=== PATIENT | female | born 1995 | race African-American/Black ===

== ENCOUNTER 2017-01-10 04:39 | Inpatient (IN) | payer MEDICAID ==
[2017-01-10] VITALS (8 sets, daily range): BP systolic 114–129; BP diastolic 73–96
[~2017-01-10] VITALS: Ht 30.5 cm; Wt 0.5 kg
[~2017-01-10 04:39] MED LIST: FERR325T50 PO; PREN-129 PO
[2017-01-10 05:39] LABS: Urine RBC None Seen /hpf (0 - 4)
[2017-01-10 05:42] LABS: Basophils # (auto) 0 uL; Basophils % (auto) 0.4 % (0.0-2.0); Eosinophils # (auto) 0.1 uL; Eosinophils % (auto) 1.2 % (0.0-7.0); Hematocrit 36.5 % (36.0-46.0); Lymphocytes # (auto) 2.2 uL; Lymphocytes % (auto) 33.2 % (10.0-50.0); Mean Corpuscular Hemoglobin 28.3 pg (28.0-32.0); Mean Corpuscular Hgb Conc. 32.8 g/dL (32.0-36.0); Mean Corpuscular Volume 86.3 fL (80.0-100.0); Mean Platelet Volume 8.4 fL (7.4-10.4); Monocytes # (auto) 0.9 uL; Monocytes % (auto) 13.2 % (0.0-12.0); Neutrophils # (auto) 3.4 uL; Platelet Count (auto) 242 10^3/uL (140-450); Red Cell Distribution Width 13.3 % (11.6-16.0); White Blood Cell 6.6 10^3/uL (4.4-10.8)
[2017-01-10 05:50] LABS: Urine Bilirubin Negative (Negative); Urine Blood Negative /uL (Negative); Urine Color Yellow (Yellow); Urine Glucose Normal (Normal); Urine Ketone Negative (Negative); Urine Nitrite Negative (Negative); Urine Squamous Epithelial Cell MOD /hpf (<5); Urine Urobilinogen Normal (Negative)
[2017-01-10 05:56] LABS: INR 0.9 (0.9-1.15); Partial Thromboplastin Time 30.6 sec (22.64-33.71); Prothrombin Time 9.7 sec (9.37-12.3)
[2017-01-10 06:18] LABS: BUN/Creatinine Ratio 12.3; Bilirubin, Total 0.3 mg/dL (0.2-1.0); Calcium 9.4 mg/dL (8.5-10.1); Potassium 3.8 mmol/L (3.5-5.1); Total Protein 7.5 g/dL (6.4-8.2)
[2017-01-10] MEDS ORDERED: fentaNYL CITRATE 100 MCG/2 ML VL ONE (09:02)
[2017-01-10] MEDS ORDERED: ceFAZolin 1GM VL ONE (09:03)
[2017-01-10] MEDS ORDERED: ONDANSETRON HCL 4 MG/2 ML VIAL ONE (09:03)
[2017-01-10] MEDS ORDERED: MORPHINE SULF(PF) 0.5MG/ML 10ML VIAL ONE (09:03)
[2017-01-10] MEDS ORDERED: OXYTOCIN 10 UNIT/ML 10ML VIAL ONE ×2 (09:04→10:15)
[2017-01-10] MEDS ORDERED: KETOROLAC TROMETH 30 MG/ML 1ML VIAL ONE (09:04)
[2017-01-10] MEDS ORDERED: DEXAMETHASONE SOD PHOS 10MG/1ML VIAL INJ IV ONE (09:07)
[2017-01-10] MEDS ORDERED: ONDANSETRON HCL 4 MG/2 ML VIAL IV PRN ×2 (10:00→10:30)
[2017-01-10] MEDS ORDERED: MORPHINE SULF INJ 2 MG/ML SYRINGE 1ML IV PRN (10:00)
[2017-01-10] MEDS ORDERED: KETOROLAC TROMETH 30 MG/ML 1ML VIAL IV PRN ×2 (10:00→10:30)
[2017-01-10] MEDS ORDERED: HYDROmorphone HCL 2 MG/ML VL IV PRN ×3 (10:00→10:30)
[2017-01-10] MEDS: LACT. RINGERS/OXYTOCIN 20UNITS 1,000 ML IV SCH ×2 (10:00→16:40)
[2017-01-10] MEDS ORDERED: OXYTOCIN 10UNIT/ML 1ML VIAL ONE (10:13)
[2017-01-10] MEDS ORDERED: ONDANSETRON HCL 4 MG/2 ML VIAL IV ONE (10:30)
[2017-01-10] MEDS ORDERED: NALOXONE HCL 0.4 MG/ML VIAL IV PRN ×2 (10:30)
[2017-01-10] MEDS ORDERED: DEXAMETHASONE SOD PHOS 10MG/1ML VIAL INJ IV PRN (10:30)
[2017-01-10] MEDS ORDERED: diphenhdrAMINE HCL 50 MG/1 ML VL IV PRN (10:30)
[2017-01-10] MEDS: LACTATED RINGER'S 1,000 ML IV SCH ×2 (12:51→15:00)
[2017-01-10] MEDS: ceFAZolin 1GM/50ML D5W 50 ML IV SCH ×2 (14:00→22:08)
[2017-01-10] MEDS ORDERED: METOCLOPRAMIDE HCL 5MG/ml INJ 2ml VIAL IV PRN (16:45)
[2017-01-10] MEDS: FAMOTIDINE INJECTION 40 MG in SODIUM CHL 0.9% 100 ML IV SCH (17:00)
[2017-01-10 17:24] LABS: Basophils # (auto) 0 uL; Eosinophils # (auto) 0 uL; Eosinophils % (auto) 0.1 % (0.0-7.0); Hematocrit 33.8 % (36.0-46.0); Hemoglobin 10.9 g/dL (12.2-16.2); Lymphocytes # (auto) 0.9 uL; Lymphocytes % (auto) 8.7 % (10.0-50.0); Mean Corpuscular Hemoglobin 28.4 pg (28.0-32.0); Mean Corpuscular Hgb Conc. 32.4 g/dL (32.0-36.0); Mean Corpuscular Volume 87.8 fL (80.0-100.0); Mean Platelet Volume 8.3 fL (7.4-10.4); Monocytes # (auto) 0.9 uL; Neutrophils # (auto) 8.2 uL; Neutrophils % (auto) 82.2 % (37.0-80.0); Platelet Count (auto) 214 10^3/uL (140-450); Red Cell Distribution Width 13.2 % (11.6-16.0); White Blood Cell 9.9 10^3/uL (4.4-10.8)
[2017-01-11] VITALS (8 sets, daily range): BP systolic 107–127; BP diastolic 67–84
[2017-01-11] MEDS: ceFAZolin 1GM/50ML D5W 50 ML IV SCH (05:44)
[2017-01-11 06:02] LABS: Basophils # (auto) 0 uL; Basophils % (auto) 0.4 % (0.0-2.0); Eosinophils # (auto) 0 uL; Eosinophils % (auto) 0.4 % (0.0-7.0); Hematocrit 31.3 % (36.0-46.0); Hemoglobin 10.3 g/dL (12.2-16.2); Lymphocytes # (auto) 1.4 uL; Lymphocytes % (auto) 18.1 % (10.0-50.0); Mean Corpuscular Hemoglobin 28.6 pg (28.0-32.0); Mean Corpuscular Hgb Conc. 32.8 g/dL (32.0-36.0); Mean Corpuscular Volume 87.3 fL (80.0-100.0); Mean Platelet Volume 8.2 fL (7.4-10.4); Monocytes # (auto) 0.8 uL; Monocytes % (auto) 10.7 % (0.0-12.0); Neutrophils # (auto) 5.5 uL; Neutrophils % (auto) 70.4 % (37.0-80.0); Platelet Count (auto) 209 10^3/uL (140-450); Red Cell Distribution Width 12.9 % (11.6-16.0); White Blood Cell 7.8 10^3/uL (4.4-10.8)
[2017-01-11] MEDS ORDERED: BISACODYL 10 MG RECT SUPP PR PRN ×2 (07:45)
[2017-01-11] MEDS ORDERED: IBUPROFEN 800 MG TAB PO PRN (07:45)
[2017-01-11] MEDS ORDERED: HYDROcodone-ACET 10/325MG TAB PO PRN ×2 (07:45)
[2017-01-11] MEDS: SIMETHICONE 80 MG CHEWABLE TABLET PO SCH ×4 (08:50→22:20)
[2017-01-11] MEDS ORDERED: DOCUSATE CALCIUM 240 MG CAP PO SCH (10:00)
[2017-01-11] MEDS: DOCUSATE SOD 100 MG CAP PO SCH ×2 (10:00→22:20)
[2017-01-11] MEDS ORDERED: DOCUSATE SOD 100 MG CAP PO SCH (10:00)
[2017-01-11] MEDS: DOCUSATE CALCIUM 240 MG CAP PO SCH (10:31)
[2017-01-11] MEDS ORDERED: SIMETHICONE 80 MG CHEWABLE TABLET PO SCH (12:00)
[2017-01-11] MEDS: FAMOTIDINE INJECTION 40 MG in SODIUM CHL 0.9% 100 ML IV SCH (16:37)
[2017-01-11] MEDS: IBUPROFEN 800 MG TAB PO PRN (22:25)
[2017-01-12 03:30] VITALS: BP 127/77
[2017-01-12] MEDS: SIMETHICONE 80 MG CHEWABLE TABLET PO SCH ×4 (06:50→22:39)
[2017-01-12] MEDS: IBUPROFEN 800 MG TAB PO PRN (07:02)
[2017-01-12 07:22] VITALS: BP 136/85
[2017-01-12] MEDS: DOCUSATE CALCIUM 240 MG CAP PO SCH (10:30)
[2017-01-12] MEDS: DOCUSATE SOD 100 MG CAP PO SCH ×2 (10:30→22:39)
[2017-01-12 12:22] VITALS: BP 124/84
[2017-01-12 16:00] VITALS: BP 108/65
[2017-01-12] MEDS ORDERED: HYDROcodone-ACET 10/325MG TAB PO PRN (16:45)
[2017-01-12] MEDS ORDERED: HYDROcodone-ACET 5/325MG TAB PO PRN ×2 (17:15)
[2017-01-12] MEDS: HYDROcodone-ACET 5/325MG TAB PO PRN (17:22)
[2017-01-12 19:00] VITALS: BP 114/74
[2017-01-12 23:07] VITALS: BP 124/78
[2017-01-13] MEDS: HYDROcodone-ACET 5/325MG TAB PO PRN (00:50)
[2017-01-13 03:42] VITALS: BP 118/80
[2017-01-13] MEDS: SIMETHICONE 80 MG CHEWABLE TABLET PO SCH (05:38)
[2017-01-13 07:00] VITALS: BP 144/87
== END 2017-01-13 09:40 | disposition home or self-care (01) | DRG 540 ==
LOC: LDRP 04:39 → OBSVTOIN 04:39 → LDRP 08:31
PROVIDERS: ADMIT Obstetrics & Gynecology; ATTEND Obstetrics & Gynecology
PROC: 10D00Z1 Extraction of Products of Conception, Low, Open Approach (ICD-10-PCS; principal; 2017-01-10 09:07)
DX: O34.219 Maternal care for unspecified type scar from previous cesarean delivery (principal); Z37.0 Single live birth; Z3A.39 39 weeks gestation of pregnancy
CPT/HCPCS: 36415; 59025; 80053; 81001; 85025; 85610; 85730; 86850; 86900; 86901; 96361; 96365; 96366; 96375; G0434; J0690; J1100; J1885; J2405; J2590; J3490

== ENCOUNTER 2018-03-19 16:41 | Emergency (ER) | payer MEDICAID ==
[~2018-03-19] VITALS: Ht 167.6 cm; Wt 60.8 kg
[2018-03-19 16:48] VITALS: BP 111/78
== END 2018-03-19 18:22 | disposition home or self-care (01) ==
LOC: ER 16:41
DX: O20.0 Threatened abortion (principal); Z3A.13 13 weeks gestation of pregnancy; Z88.8 Allergy status to other drugs, medicaments and biological substances
CPT/HCPCS: 36415; 76801; 84702

== ENCOUNTER 2019-11-24 04:00 | Inpatient (IN) | payer MEDICAID ==
[2019-11-24] VITALS (13 sets, daily range): BP systolic 97–148; BP diastolic 55–79
[~2019-11-24] VITALS: Ht 167.6 cm; Wt 77.1 kg
[2019-11-24 04:57] LABS: Basophils # (auto) 0 uL; Basophils % (auto) 0.7 % (0.0-2.0); Eosinophils # (auto) 0.1 uL; Eosinophils % (auto) 1.7 % (0.0-7.0); Hemoglobin 10.8 g/dL (12.2-16.2); Lymphocytes # (auto) 1.8 uL; Lymphocytes % (auto) 30.9 % (10.0-50.0); Mean Corpuscular Hemoglobin 26.6 pg (28.0-32.0); Mean Corpuscular Hgb Conc. 31.8 g/dL (32.0-36.0); Mean Corpuscular Volume 83.5 fL (80.0-100.0); Monocytes # (auto) 0.7 uL; Neutrophils # (auto) 3.3 uL; Neutrophils % (auto) 55.7 % (37.0-80.0); Nucleated Red Blood Cells % 0.1 %; Platelet Count (auto) 224 10^3/uL (140-450); Red Blood Cells 4.07 10^6/uL (4.0-5.20); Red Cell Distribution Width 16.6 % (11.8-14.3); White Blood Cell 5.9 10^3/uL (4.4-10.8)
[2019-11-24 05:15] LABS: Calcium 8.9 mg/dL (8.5-10.1); Potassium 3.6 mmol/L (3.5-5.1)
[2019-11-24 05:17] LABS: BUN/Creatinine Ratio 10.9; Bilirubin, Total 0.2 mg/dL (0.2-1.0); INR 0.94 (0.9-1.15); Total Protein 7.3 g/dL (6.4-8.2)
[2019-11-24 05:22] LABS: Alcohol, Urine < 3.0 mg/dL (0-5); Amphetamine Screen, Urine NEGATIVE (NEGATIVE); Barbiturate Scree,Urine NEGATIVE (NEGATIVE); Benzodiazephine Screen, Urine NEGATIVE (NEGATIVE); Cannabinoid Screen, Urine NEGATIVE (NEGATIVE); Cocaine Screen, Urine NEGATIVE (NEGATIVE); Opiate Scree,Urine NEGATIVE (NEGATIVE); Phencyclidine Screen, Urine NEGATIVE (NEGATIVE)
[2019-11-24 05:53] LABS: Urine Bacteria MOD /hpf (None Seen); Urine Blood Negative /uL (Negative); Urine Hyaline Cast FEW /lpf (0 - 2); Urine Specific Gravity 1.014 (1.001-1.035); Urine WBC 69 /hpf (0 - 5); Urine WBC Clumps PRESENT /hpf (None Seen)
[2019-11-24] MEDS ORDERED: ceFAZolin 1GM/50ML 50 ML IV SCH (07:15)
[2019-11-24] MEDS ORDERED: ONDANSETRON HCL 4 MG/2 ML VIAL IV PRN ×2 (07:15→09:00)
[2019-11-24] MEDS ORDERED: TETRACAINE 1% INJ 2 ML VIAL IJ ONE (07:23)
[2019-11-24] MEDS ORDERED: MORPHINE SULF(PF) 0.5MG/ML 10ML VIAL ONE (07:26)
[2019-11-24] MEDS ORDERED: fentaNYL CITRATE 100 MCG/2 ML VL ONE (07:26)
[2019-11-24] MEDS ORDERED: MIDAZOLAM HCL 1MG/1ML-2 ML VIAL ONE (07:27)
[2019-11-24] MEDS ORDERED: OXYTOCIN 10 UNIT/ML 10ML VIAL ONE (07:52)
[2019-11-24] MEDS ORDERED: OXYTOCIN 10UNIT/ML 1ML VIAL ONE (08:37)
--- NOTE | 2019-11-24 08:53 | NUR ---
Pt educated on benefits of as well as risks of not . Pt informed that RN would provide assistance as needed to promote exclusive . Pt verbalizes understanding.
[2019-11-24] MEDS ORDERED: HYDROmorphone HCL 2 MG/ML VL IV PRN (09:00)
[2019-11-24] MEDS ORDERED: NALBUPHINE HCL 10 MG/1ml INJECTION SUBCUT ONE (09:00)
[2019-11-24] MEDS ORDERED: DexAMETHasone SOD PHOS 10MG/1ML VIAL INJ IV PRN (09:00)
[2019-11-24] MEDS ORDERED: ePHEDrine SULFATE 50 MG/ML AMP IV PRN (09:00)
[2019-11-24] MEDS ORDERED: diphenhdrAMINE HCL 50 MG/1 ML VL IV PRN (09:00)
[2019-11-24] MEDS ORDERED: KETOROLAC TROMETH 15 mg/ml 1ML VL IV PRN (09:00)
[2019-11-24] MEDS ORDERED: LABETALOL HCL 5 MG/ML 4ML SYRINGE IV PRN (09:00)
[2019-11-24] MEDS ORDERED: NALOXONE HCL 0.4 MG/ML VIAL IV PRN (09:00)
--- NOTE | 2019-11-24 09:10 | NUR ---
Report on stable patient received from Barbara Ayala RN. Patient transferred to Room 107A. No signs of distress noted. Fundus at umbilicus, firm with scant lochia. Bp 105/79, HR 89, SPO2 96% RR 16.
[2019-11-24] MEDS ORDERED: ACETAMINOPHEN IV 1000 MG/100ML (10MG/ML) IV ONE ×2 (12:00→22:45)
[2019-11-24] MEDS: LACT. RINGERS/OXYTOCIN 20UNITS 1,000 ML IV SCH ×2 (13:51→16:15)
[2019-11-24] MEDS: MORPHINE SULFATE 4 MG/ML SYR/VIAL IV PRN ×2 (16:04→20:11)
[2019-11-24] MEDS: ceFAZolin 1GM/50ML 50 ML IV SCH ×2 (16:05→23:40)
[2019-11-24] MEDS: LACTATED RINGER'S 1,000 ML IV SCH (16:54)
[2019-11-24 20:03] LABS: Basophils # (auto) 0 uL; Basophils % (auto) 0.4 % (0.0-2.0); Eosinophils # (auto) 0 uL; Eosinophils % (auto) 0.1 % (0.0-7.0); Hematocrit 31.7 % (36.0-46.0); Hemoglobin 10.3 g/dL (12.2-16.2); Lymphocytes # (auto) 0.5 uL; Lymphocytes % (auto) 6.5 % (10.0-50.0); Mean Corpuscular Hemoglobin 27.2 pg (28.0-32.0); Mean Corpuscular Hgb Conc. 32.4 g/dL (32.0-36.0); Mean Corpuscular Volume 83.9 fL (80.0-100.0); Monocytes # (auto) 0.8 uL; Monocytes % (auto) 9.9 % (0.0-12.0); Neutrophils # (auto) 6.9 uL; Neutrophils % (auto) 83.1 % (37.0-80.0); Platelet Count (auto) 189 10^3/uL (140-450); Red Blood Cells 3.78 10^6/uL (4.0-5.20); White Blood Cell 8.3 10^3/uL (4.4-10.8)
--- NOTE | 2019-11-24 22:20 | NUR ---
Ambulation: Patient OOB with standby assistance by RN. Patient ambulates around room with steady gait. Tolbert catheter remains in place draining clear yellow urine. Pericare teaching provided with returned demonstration by patient. Clean gown provided and bed linen changed. Patient ambulated back to bed with steady gait and no distress noted.
--- NOTE | 2019-11-24 22:46 | NUR ---
CECI Sainz made aware of 100.9 temp. Orders received for IV Offirmev. CECI aware patient received it at 1215 today. Addendum: 11/24/19 at 9191 by Rachael Colin RN RN Order for One Time Dose.
[2019-11-25 02:32] VITALS: BP 121/85
[2019-11-25] MEDS: LACTATED RINGER'S 1,000 ML IV SCH ×3 (03:56→21:27)
--- NOTE | 2019-11-25 04:30 | NUR ---
Emeli ORNELAS aware of temperatures of mother. No new orders given. Continue current plan of care.
[2019-11-25 05:06] LABS: RPR Non Reactive (Non Reactive)
[2019-11-25] MEDS: MORPHINE SULFATE 4 MG/ML SYR/VIAL IV PRN (05:24)
--- NOTE | 2019-11-25 05:30 | NUR ---
Méndez catheter dc'd Order to discontinue méndez catheter. Méndez dc'd with clean technique following deflation of balloon. Patient tolerated well with no complaints of pain. Continue care.
[2019-11-25 06:13] LABS: Basophils # (auto) 0 uL; Basophils % (auto) 0.3 % (0.0-2.0); Eosinophils # (auto) 0 uL; Eosinophils % (auto) 0.1 % (0.0-7.0); Hematocrit 31.7 % (36.0-46.0); Hemoglobin 10.4 g/dL (12.2-16.2); Lymphocytes # (auto) 0.5 uL; Lymphocytes % (auto) 7.1 % (10.0-50.0); Mean Corpuscular Hemoglobin 27.4 pg (28.0-32.0); Mean Corpuscular Hgb Conc. 32.7 g/dL (32.0-36.0); Mean Corpuscular Volume 83.8 fL (80.0-100.0); Monocytes # (auto) 0.7 uL; Monocytes % (auto) 9.6 % (0.0-12.0); Neutrophils # (auto) 6.2 uL; Neutrophils % (auto) 82.9 % (37.0-80.0); Platelet Count (auto) 170 10^3/uL (140-450); Red Blood Cells 3.79 10^6/uL (4.0-5.20); White Blood Cell 7.5 10^3/uL (4.4-10.8)
[2019-11-25] MEDS ORDERED: ACETAMINOPHEN 325 MG TAB PO PRN (06:30)
[2019-11-25] MEDS ORDERED: HYDROcodone-ACET 5/325MG TAB PO PRN ×2 (06:30)
--- NOTE | 2019-11-25 06:35 | NUR ---
Sarah CORTEZ CNM AT NURSES STATION, STATUS UPDATE GIVEN, TRENDING VITAL SIGNS GIVEN, TRENDING TEMPERATURES GIVEN, LATEST 99.8 F ORALLY TAKEN BY VIOLENT CRIMES DETECTIVE RN, NO FLATUS YET, HYPOACTIVE BOWEL SOUNDS PRESENT, PTS MAC CATHETER IS OUT, PENDING FIRST VOID, ORDERS RECEIVED FOR POST OP DAY 1 AND TYLENOL 650MG PO [id number]. READ BACK AND VERIFIED ORDERS. WILL CARRY OUT.
[2019-11-25] MEDS ORDERED: ACETAMINOPHEN 325 MG TAB PO ONE (06:39)
[2019-11-25 06:40] VITALS: BP 120/74
--- NOTE | 2019-11-25 06:40 | NUR ---
UPON ASSESSMENT, PT SITTING SEMIFOLWERS IN BED, 2 BLANKETS COVERING PATIENT, PILLOWS UNDER PATIENTS BILATERAL ARMS AND BEHIND HEAD, SOCKS ON FEET, PTS FUNDUS IS FIRM, AT UMBILICUS, SCANT RUBRA BLEEDING NOTED, HYPOACTIVE BOWELS SOUNDS NOTED, NO FLATUS YET. PTS IV IS PATENT AND LR IS RUNNING AT 125ML/HR PER ORDER. PTS LOWER ABDOMINAL INCISION HAS 15 JESSE OPEN TO AIR, NO DRAINAGE OR BLEEDING NOTED, ABDOMINAL BINDER ON, INCENTIVE SPIROMETER IS AT BEDSIDE. PT EDUCATED ON USE, AND DEMONSTRATION AND PT RETURNED DEMONSTRATION. PTS MAC CATHETER IS OUT, PENDING FIRST VOID. PT STATES NO URGE TO VOID AT THIS TIME. PTS TEMPERATURE IS 101.4, COOLING MEASURES INITIATED, BLANKETS AND SOCKS REMOVED, ICE PACKS PLACED UNDER PTS AXILLA BILATERALLY AND WASH CLOTH PLACED ON PTS FOREHEAD. PT STATES "I ALWAYS GET A FEVER AFTER MY C-SECTIONS CAUSE MY BREAST MILK HAS NOT COME IN YET." PLAN OF ARE DISCUSSED. BED IS LOCKED AND IN LOWEST POSITION, 2 SIDE RAILS UP, CALL LIGHT WITHIN REACH. WILL CONTINUE TO MONITOR.
--- NOTE | 2019-11-25 06:43 | NUR ---
0643: Oral temp. 101.3F. Cooling measures initiated. Tylenol 650mg po administered. PT. instructed to drink one pitcher of water. PT. begins consumption of water.
--- NOTE | 2019-11-25 07:21 | NUR ---
DR. PIEDRA AT PT BEDSIDE, STATUS UPDATE GIVEN, TRENDING VITAL SIGNS GIVEN, TRENDING TEMPERATURES GIVEN, LATEST 101.3 F ORALLY, TYLENOL 650MG PO GIVEN PER ORDER, NO FLATUS YET, HYPOACTIVE BOWEL SOUNDS PRESENT, PTS FUNDUS IS FIRM, AT UMBILICUS, SCANT RUBRA BLEEDING NOTED, PTS MAC CATHETER IS OUT, PENDING FIRST VOID, ORDERS RECEIVED TO STOP ANCEF 1 GM, DECREASE LR TO 80ML/HR, START PT ON ZOSYN 3.375 IVPB [id number], AND ADVANCE PT DIET TOLERATED ONCE PT HAS PASSED FLATUS. READ BACK AND VERIFIED ORDERS. WILL CARRY OUT.
[2019-11-25] MEDS ORDERED: PIPERACILLIN-TAZOB 3.375GM 100 ML IV SCH (07:30)
--- NOTE | 2019-11-25 07:43 | NUR ---
TEMPERATURE REASSESSMENT 100.6 F ORALLY, COOLING MEASURES IN PLACE, PTS RESPIRATIONS ARE EVEN AND NONLABORED, NO DISTRESS NOTED. WILL CONTINUE TO MONITOR.
--- NOTE | 2019-11-25 08:21 | NUR ---
VOID #1 PT AMBULATED TO BATHROOM VIA STEADY GAIT, PT ABLE TO VOID 500ML CLEAR LIGHT LOUANN URINE WITHOUT DIFFICULTY. PT AMBULATED BACK TO BED WITHOUT DIFFICULTY. WILL CONTINUE TO MONITOR.
[2019-11-25] MEDS: SIMETHICONE 80 MG CHEWABLE TABLET PO PRN ×2 (09:55→15:33)
[2019-11-25] MEDS: DOCUSATE SOD 100 MG CAP PO SCH ×2 (09:55→21:26)
[2019-11-25 11:12] VITALS: BP 124/64
[2019-11-25 14:45] VITALS: BP 115/66
--- NOTE | 2019-11-25 15:15 | NUR ---
TEMPERATURE REASSESSMEN PTS TEMPERATURE IS 100.0 ORALLY, COOLING MEASURES INITIATED, ICE PACKS PLACED UNDER PTS AXILLA BILATERALLY, COLD WASH CLOTH PLACED ON PTS FOREHEAD, PTS BLANKETS REMOVED AND PTS SOCKS REMOVED. PT STATES "I FEEL FINE, JUST TIRED." WILL GIVEN PT MOTRIN FOR A 3/10 CRAMPING PAIN, TYLENOL 650MG NOT DUE AT THIS TIME. WILL CONTINUE TO MONITOR.
[2019-11-25] MEDS: IBUPROFEN 800 MG TAB PO PRN (15:34)
[2019-11-25] MEDS: PIPERACILLIN-TAZOB 3.375GM 100 ML IV SCH ×2 (15:34→21:27)
--- NOTE | 2019-11-25 16:43 | NUR ---
TEMPERATURE REASSESSMENT PT TEMPERATURE 98.7, 1 HOUR POST MOTRIN 800MG PO, PT DENIES ANY PAIN, NO DISTRESS NOTED. PT STATES NO FLATUS YET. PT EDUCATED ON THE IMPORTANCE OF AMBULATION AND DRINKING ORAL HYDRATION. PT ENCOURAGED TO AMBULATE IN THE ROOM, SITTING IN THE CHAIR AT THER BEDSIDE AND AMBULATING THE HALLWAY. PT VERBALIZED UNDERSTANDING. WILL CONTINUE TO MONITOR. Addendum: 11/25/19 at 1708 by Sunitha Art RN PT HAS ACTIVE BOWEL SOUNDS X4 QUADRANTS.
[2019-11-25 19:00] VITALS: BP 118/66
[2019-11-25 23:00] VITALS: BP 100/57
[2019-11-26 03:00] VITALS: BP 105/57
[2019-11-26] MEDS: PIPERACILLIN-TAZOB 3.375GM 100 ML IV SCH ×3 (03:33→16:00)
[2019-11-26] MEDS: IBUPROFEN 800 MG TAB PO PRN ×2 (05:23→19:11)
[2019-11-26 07:00] VITALS: BP 102/49
[2019-11-26] MEDS: LACTATED RINGER'S 1,000 ML IV SCH (08:30)
[2019-11-26] MEDS: DOCUSATE SOD 100 MG CAP PO SCH ×2 (10:08→21:23)
[2019-11-26 11:00] VITALS: BP 106/72
[2019-11-26 14:30] VITALS: BP 112/77
[2019-11-26 19:00] VITALS: BP 111/71
[2019-11-26] MEDS: CEPHALEXIN 250 MG CAP PO SCH (21:23)
--- NOTE | 2019-11-26 21:34 | NUR ---
ORDERS RECEIVED FROM DR PIEDRA TO KIM IV ANTIBIOTIC. NEW ORDER FOR PO ANTIBIOTIC
--- NOTE | 2019-11-26 21:35 | NUR ---
IV removal IV DC'd with clean technique, catheter fully intact. Pressure dressing applied to site. Patient tolerated well. NOTE:
[2019-11-26 23:00] VITALS: BP 105/71
[2019-11-27 03:00] VITALS: BP 110/73
[2019-11-27] MEDS: IBUPROFEN 800 MG TAB PO PRN (05:28)
[2019-11-27] MEDS: CEPHALEXIN 250 MG CAP PO SCH (05:28)
[2019-11-27 07:00] VITALS: BP 96/58
[2019-11-27] MEDS: DOCUSATE SOD 100 MG CAP PO SCH (10:00)
--- NOTE | 2019-11-27 10:08 | NUR ---
C/S Staple Removal DC Note: Orders received to remove chidi. Chidi removed using sterile technique. Lower abdominal incision approximated, no drainage/redness/inflammation visualized at time of removal. Steri-strips applied. Education provided on incisional care. Patient verbalized understanding and willingness to comply to instructions/teaching provided.
--- NOTE | 2019-11-27 10:15 | NUR ---
Discharge: Discharge instructions given as ordered. Pt encouraged to follow up with BOOTH CASHIER as instructed. All questions and concerns addressed. Patient verbalized understanding. Medication reconciliation completed and copy given to patient. All required/requested vaccines given and copies of vaccinations given to patient. Patient encouraged to prepare to depart unit.
--- NOTE | 2019-11-27 10:15 | NUR ---
Discharge: Discharge instructions given to mother of baby as ordered. Copies of and hearing screening, along with vaccination record given to mother. Mother encouraged to follow up with [facility] [employer] of choice and to give envelope with infants information to senior tableau developer at 1st office visit. All questions and concerns addressed. Mother of baby verbalized understanding and agreed to comply. Mother of baby encouraged to prepare for departure and notify RN ready to leave room for ID band removal/verification and car seat check.
[2019-11-27 11:00] VITALS: BP 105/68
--- NOTE | 2019-11-27 11:18 | NUR ---
Discharge: Patient taken to vehicle ambulatory with all personal belongings, accompanied by staff and family member. No distress noted at time of departure, no adverse changes in status since initial assessment.
[2019-11-27 11:22] VITALS: BP 122/51
== END 2019-11-27 11:18 | disposition home or self-care (01) | DRG 540 ==
LOC: LDRP 04:00
PROVIDERS: ADMIT Obstetrics & Gynecology; ATTEND Obstetrics & Gynecology
PROC: 10D00Z1 Extraction of Products of Conception, Low, Open Approach (ICD-10-PCS; 2019-11-24)
PROC: 0UB70ZZ Excision of Bilateral Fallopian Tubes, Open Approach (ICD-10-PCS; principal; 2019-11-24 07:25)
DX: O34.211 Maternal care for low transverse scar from previous cesarean delivery (principal); N73.6 Female pelvic peritoneal adhesions (postinfective); Z37.0 Single live birth; O99.89 Other specified diseases and conditions complicating pregnancy, childbirth and the puerperium; Z30.2 Encounter for sterilization
CPT/HCPCS: 36415; 51702; 59025; 80053; 80307; 81001; 81002; 84112; 85025; 85610; 85730; 86592; 86850; 86900; 86901; 94760; 96365; 96366; 96374; 96375; G0378; J0131; J0690; J2250; J2543; J2590

== ENCOUNTER 2021-08-18 16:13 | Emergency (ER) | payer MEDICAID ==
[~2021-08-18] VITALS: Ht 167.6 cm; Wt 61.2 kg
[2021-08-18 16:15] VITALS: BP 108/59
== END 2021-08-18 18:07 | disposition home or self-care (01) ==
LOC: ER 16:13
DX: J03.90 Acute tonsillitis, unspecified (principal); Z79.899 Other long term (current) drug therapy; Z91.018 Allergy to other foods

== ENCOUNTER 2023-05-27 18:12 | Emergency (ER) | payer MEDICAID ==
[~2023-05-27] VITALS: Ht 167.6 cm; Wt 80.0 kg
[2023-05-27] MEDS ORDERED: IBUP1TAB5 PO (21:40)
[2023-05-27] MEDS ORDERED: DOXY100C4 PO (21:40)
[2023-05-28 02:29] VITALS: BP 114/78; PULSE 97; RESP 18; TEMP 97.8; O2SAT 97
== END 2023-05-27 22:36 | disposition home or self-care (01) ==
LOC: ER 18:12
DX: S00.501A Unspecified superficial injury of lip, initial encounter (principal); F32.9 Major depressive disorder, single episode, unspecified; R51.9 Headache, unspecified; Z98.890 Other specified postprocedural states; Z79.1 Long term (current) use of non-steroidal anti-inflammatories (NSAID); Z79.899 Other long term (current) drug therapy; Z91.018 Allergy to other foods; W22.8XXA Striking against or struck by other objects, initial encounter; Y93.I9 Activity, other involving external motion; Y92.89 Other specified places as the place of occurrence of the external cause; Y99.8 Other external cause status
CPT/HCPCS: 70450; 70486